=== PATIENT | male | born 1955 | race African-American/Black ===

== ENCOUNTER 2021-02-09 04:42 | Day surgery (SDC) | payer OTHER ==
[2021-02-08 08:36] VITALS: BMI 26.6
[2021-02-09] MEDS ORDERED: MIDAZOLAM HCL 2 MG/2 ML SINGLE DOSE VIAL ONE (12:39)
[2021-02-09] MEDS ORDERED: LIDOCAINE HCL/PF 2% SDV 5ML VIAL ONE (12:58)
[2021-02-09] MEDS ORDERED: PROPOFOL 20 ML ONE (12:58)
[2021-02-09] MEDS ORDERED: ceFAZolin SODIUM 1 GM VIAL ONE ×2 (13:15→13:24)
[2021-02-09] MEDS ORDERED: ceFAZolin 2 GRAM PREMIX BAG IVPB ONE (13:16)
[2021-02-09] MEDS ORDERED: DEXAMETHASONE SOD PHOSPHATE 4 MG/1 ML VIAL ONE (13:24)
[2021-02-09] MEDS ORDERED: SEVOFLURANE 250 ML BTL ONE (13:35)
[2021-02-09] MEDS ORDERED: ACETAMINOPHEN INJECTION 100 ML IVPB ONE (13:41)
[2021-02-09] MEDS ORDERED: IBUPROFEN 800 MG/8 ML IJ IVPB PRN (14:45)
[2021-02-09] MEDS ORDERED: LACTATED RINGERS SOLUTION 1,000 ML IV SCH (14:45)
[2021-02-09 17:25] VITALS: BP 128/72; PULSE 75; TEMP 97.8
== END 2021-02-09 18:00 | disposition home or self-care (01) ==
LOC: JASU-SURG 04:42
PROVIDERS: ATTEND Urology
PROC: 0V503ZZ Destruction of Prostate, Percutaneous Approach (ICD-10-PCS; principal; 2021-02-09 12:00)
DX: C61 Malignant neoplasm of prostate (principal)
CPT/HCPCS: 55873; C2618; 94760; J0131